=== PATIENT | male | born 1960 | race Caucasian/White ===

== ENCOUNTER 2016-08-09 18:26 | Emergency (ER) | payer OTHER ==
[~2016-08-09 18:26] MED LIST: ACETAMINOPHEN650 M3 PO; ALBUTEROL17 GM; ALBUTEROL17 GM INH; ALDACTONE; ALDACTONE100 MG PO; AMBIEN10 MG PO; BUMEX PO; BUMEX2 MG PO; CORGARD; CORGARD PO; GLUCAGON; GLUCAGON W/DILUE1 MG; IBUPROFEN400 MG PO; KEPPRA500 MG PO; LACTULOSE10 G/15 M1 PO; LASIX; LEXAPRO PO; LEXAPRO20 MG PO; LIDOCAINE; LIDOCREAM5 GM TOP; MAALOX MAXIMUM355 ML PO; MILK OF MAGNESIA PO; NADOLOL40 MG PO; NAPROSYN500 MG PO; NO MEDICATIONS; PRILOSEC; PRILOSEC20 MG PO; PROTONIX PO; ROXICODONE5 MG PO; SEROQUEL PO; SPIRONOLACTONE100 MG PO; TRAZODONE; TRENTAL400 MG PO; ZOLOFT100 MG PO
== END 2016-08-09 18:30 | disposition left against medical advice (07) ==
LOC: CED 18:26
DX: M79.89 Other specified soft tissue disorders (principal); F17.210 Nicotine dependence, cigarettes, uncomplicated; Z88.8 Allergy status to other drugs, medicaments and biological substances
CPT/HCPCS: 99282

== ENCOUNTER 2016-10-01 12:00 | Inpatient (IN) | payer OTHER ==
--- NOTE | ~2016-10-01 | CO ---
Unit #: [id number] #: [id number] Patient: STEPHANIE RIOS SR [id number] [place] [address] [id number] I MR#: [id number] NAME: STEPHANIE RIOS SR ROOM: [facility] Age: 56 Sex: M Admission Date: 10/01/2016 : 1960 Attending Physician: Zonia Franco M.D. Primary Care Physician: Barb Bernard M.D. Consultation Date: 10/03/2016 CONSULTATION REPORT ORDERING PROVIDER Dr. Franco. REASON FOR CONSULT Low platelets. SUBJECTIVE The patient has no complaints at this time. OBJECTIVE Platelets are noted to be in the 40s. He is hepatitis C positive with cirrhosis and alcoholism. ASSESSMENT Low platelets. PLAN Get a repeat CBC and see if his platelets recover now that he has done detoxing. He needs to see a stonework tracer outpatient, but it is likely that his low platelets are because of his nonfunctioning liver. Dictated by... Harley Zavala/cuca TD: 10/04/2016 01:51 JOB #: [id number] CONSULTATION REPORT Page 1 of 1 X NEELA ALEXANDER APRN CONSULTATION REPORT
--- NOTE | ~2016-10-01 | PN ---
Unit #: [id number] #: [id number] Patient: STEPHANIE RAMIREZ [id number] [facility] [address] [place] [address] [id number] MR#: [id number] NAME: STEPHANIE RAMIREZ SR ROOM: 63 Age: 56 Sex: M Admission Date: 10/01/2016 : 1960 Attending Physician: Zonia Franco M.D. Admitting Physician: Zonia Franco M.D. Primary Care Physician: Simin Hutson PROGRESS NOTES DATE October 07, 2016 DISCUSSION Mr. Ramirez is a 56-year-old white male, who was seen today and chart was reviewed and the case was discussed with the staff. He has been anxious, withdrawn, and rather seclusive to himself with persistent depressive symptoms and suicidal ideation. Meanwhile, he has been taking the medications and tolerating them fairly well with no reported side effects. MENTAL STATUS EXAMINATION Middle-aged white male, who was casually dressed with fair personal hygiene and appears to be in no acute distress or discomfort. He was awake and alert on interaction with intact orientation. His mood is anxious with a congruent affect. His speech is slow and goal-directed. He reports having suicidal ideation but denies any homicidal ideations, and also denies any auditory or visual hallucinations. His insight and judgment remain significantly impaired. TREATMENT PLAN 1. We will continue him on his current medications and treatment protocol, and will monitor his response to the medications, and make further adjustments as needed. 2. We will continue to followup. Dictated by... Simin Jhaveri/campbell TD: 10/08/2016 09:49 JOB #: [id number] Unit #: [id number] #: [id number] Patient: STEPHANIE RAMIREZ SR [facility] PROGRESS NOTES Page 1 of 1 X Zonia Franco MD PROGRESS NOTE
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
--- NOTE | ~2016-10-01 | PN ---
Unit #: [id number] #: [id number] Patient: STEPHANIE RAMIREZ SR [id number] [facility] [address] [place] [address] [id number] I MR#: [id number] NAME: STEPHANIE RAMIREZ SR ROOM: P263 Age: 56 Sex: M Admission Date: 10/01/2016 : 1960 Attending Physician: Zonia Franco M.D. Admitting Physician: Zonia Franco M.D. Primary Care Physician: Simin Hutson PROGRESS NOTES DATE OF SERVICE: 10/11/2016 SUBJECTIVE Mr. Ramirez is a 56-year-old white male, who was seen today and chart was reviewed, and case was discussed with the staff. He has been anxious, withdrawn, though has not shown any agitation and reports improvement in his depressive symptoms. However, he reports they would like to increase his Seroquel further. He has been taking medications and tolerating them fairly well with no reported side effects. MENTAL STATUS EXAMINATION Middle-aged white male who was casually dressed with fair personal hygiene, appears to be in no acute distress or discomfort. He was awake and alert on interaction with intact orientation. His mood was anxious with a congruent affect. His speech was slow and goal directed. He denies any suicidal or homicidal ideations and also denies any auditory or visual hallucinations. His insight and judgment remain slightly impaired. TREATMENT PLAN 1. We will continue on his current treatment protocol. We will monitor his response to medications and make further adjustments as needed. 2. We will continue to follow up. Dictated by... Simin Jhaveri/cuca TD: 10/12/2016 01:30 JOB #: [id number] [facility] PROGRESS NOTES Page 1 of 1 X Zonia Franco MD PROGRESS NOTE
--- NOTE | ~2016-10-01 | PN ---
Unit #: [id number] #: [id number] Patient: STEPHANIE RAMIREZ [id number] [facility] [address] [place] [address] [id number] I MR#: [id number] NAME: STEPHANIE RAMIREZ SR ROOM: 63 Age: 56 Sex: M Admission Date: 10/01/2016 : 1960 Attending Physician: Zonia Franco M.D. Admitting Physician: Zonia Franco M.D. Primary Care Physician: Simin Hutson PROGRESS NOTES DATE October 03, 2016 DISCUSSION Mr. Ramirez is a 56-year-old white male, who was seen today and chart was reviewed and the case was discussed with the staff. He has been anxious, withdrawn, and rather seclusive to himself. Meanwhile, he has been cooperative with the treatment recommendations and he has been taking the medications and tolerating them fairly well with no reported side effects. MENTAL STATUS EXAMINATION Middle-aged white male, who was casually dressed with fair personal hygiene and appears to be in no acute distress or discomfort. He was awake and alert on interaction with intact orientation. His mood is anxious with a congruent affect. He denies any suicidal or homicidal ideations. His insight and judgment remain slightly impaired. TREATMENT PLAN 1. We will continue him on his current treatment protocol, and will monitor his response to the medications, and make further adjustments as needed. 2. We will continue to followup. Dictated by... Simin Jhaveri/campbell TD: 10/04/2016 10:51 JOB #: [id number] Unit #: [id number] #: [id number] Patient: STEPHANIE RAMIREZ [facility] PROGRESS NOTES Page 1 of 1 X Zonia Franco MD X PROGRESS NOTE
--- NOTE | ~2016-10-01 | DS ---
Unit #: [id number] #: [id number] Patient: STEPHANIE RAMIREZ SR [id number] [facility] [address] [place] [address] [id number] I MR#: [id number] NAME: STEPHANIE RAMIREZ SR ROOM: P263 Age: 56 Sex: M Admission Date: 10/01/2016 : 1960 Discharge Date: 10/12/2016 Attending Physician: Zonia Franco M.D. Primary Care Physician: Barb Bernard M.D. DISCHARGE SUMMARY IDENTIFYING DATA Mr. Ramirez is a 56-year-old white male, who is a resident of [place], [place], and is known to us from previous encounter, and was self-referred to the hospital on a voluntary basis. DISCHARGE DIAGNOSES Psychiatric: Bipolar disorder, most recent episode depressed, recurrent, moderate, without psychotic features. Medical: Cirrhosis of the liver. Stressors: Moderate psychosocial stressors. HISTORY OF PRESENT ILLNESS Please see initial psychiatric evaluation for details. PAST PSYCHIATRIC HISTORY Please see initial psychiatric evaluation for details. PAST MEDICAL HISTORY Please see initial psychiatric evaluation for details. HOSPITAL COURSE The patient [facility] and was oriented to the hospital environment. Routine p.r.n. medications were initiated, and he was started back on his home medications and medications were adjusted and Zoloft was started and then gradually titrated up as the patient was constantly complaining of persistent depressive symptoms, though he was polite and pleasant and compliant with treatment recommendations and was taking the medications regularly and was tolerating them fairly well and was able to show a slow, but therapeutic response to the medications with improvement in depression and anxiety and was denying any suicidal ideations, intent, or plan and was not seen to be a danger to self or anyone else, and as such, it was decided that he will be discharged home and will continue treatment on an outpatient basis. DISCHARGE MEDICATIONS Zoloft 100 mg b.i.d. for depression, and Seroquel 200 mg at bedtime for depression. DISCHARGE CONDITION Stable. PROGNOSIS Fair. Unit #: [id number] #: [id number] Patient: STEPHANIE RAMIREZ SR Dictated by... Zonia Franco M.D. IAA/modl TD: 10/12/2016 22:02 JOB #: [id number] DISCHARGE SUMMARY Page 1 of 1 X Zonia Franco MD DISCHARGE SUMMARY
--- NOTE | ~2016-10-01 | PN ---
Unit #: [id number] #: [id number] Patient: STEPHANIE RAMIREZ [id number] [facility] [address] [place] [address] [id number] I MR#: [id number] NAME: STEPHANIE RAMIREZ SR ROOM: 63 Age: 56 Sex: M Admission Date: 10/01/2016 : 1960 Attending Physician: Zonia Franco M.D. Admitting Physician: Zonia Franco M.D. Primary Care Physician: Simin Hutson PROGRESS NOTES DATE 10/05/2016 DISCUSSION Mr. Ramirez is a 56-year-old, white male with mood disorder who was seen today and chart was reviewed and case was discussed with the staff. He has been anxious, withdrawn and rather seclusive to himself. Meanwhile, he has been cooperative with treatment recommendations. he has been taking the medication and tolerating them fairly well with no reported side effects. MENTAL STATUS EXAM Middle-aged white male who was casually dressed with fair personal hygiene, appears to be in no acute distress or discomfort. He was awake and alert on interaction with intact orientation. His mood was anxious with congruent affect. He denies any suicidal or homicidal ideation. His insight and judgement remains slightly impaired. TREATMENT PLAN 1. We will continue him on his current treatment protocol. We will monitor his response to the medication and make further adjustments as needed. 2. We will continue to follow up. Dictated by... Simin Jhaveri/tevin TD: 10/06/2016 00:33 JOB #: [id number] Unit #: [id number] #: [id number] Patient: STEPHANIE RAMIREZ [facility] PROGRESS NOTES Page 1 of 1 X Zonia Franco MD X PROGRESS NOTE
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
--- NOTE | ~2016-10-01 | PN ---
Unit #: [id number] #: [id number] Patient: STEPHANIE RAMIREZ [id number] [facility] [address] [place] [address] [id number] I MR#: [id number] NAME: STEPHANIE RAMIREZ SR ROOM: P263 Age: 56 Sex: M Admission Date: 10/01/2016 : 1960 Attending Physician: Zonia Franco M.D. Admitting Physician: Zonia Franco M.D. Primary Care Physician: Simin Hutson PROGRESS NOTES DATE 10/06/2016 DISCUSSION Mr. Ramirez is a 56-year-old white male who was seen today and chart was reviewed and case was discussed with the staff. He has been anxious, withdrawn and rather seclusive to himself. Meanwhile, he has been cooperative with treatment recommendations and has been reporting some persistent depressive symptoms with feelings of hopelessness. MENTAL STATUS EXAMINATION Middle-aged white male who was casually dressed with fair personal hygiene and appears to be in no acute distress or discomfort. He was awake and alert on interaction with intact orientation. His mood was anxious with congruent affect. He reports having suicidal ideation but denies any homicidal ideation. His insight and judgement remains slightly impaired. TREATMENT PLAN 1. Will continue on his current treatment protocol. Will monitor his response to the medications and make further adjustments as needed. 2. Will continue to follow up. Dictated by... Simin Jhaveri/fish TD: 10/07/2016 20:03 JOB #: [id number] Unit #: [id number] #: [id number] Patient: STEPHANIE RAMIREZ [facility] PROGRESS NOTES Page 1 of 1 X Zonia Franco MD X PROGRESS NOTE
--- NOTE | ~2016-10-01 | PN ---
Unit #: [id number] #: [id number] Patient: STEPHANIE RAMIREZ [id number] [facility] [address] [place] [address] [id number] MR#: [id number] NAME: STEPHANIE RAMIREZ SR ROOM: P263 Age: 56 Sex: M Admission Date: 10/01/2016 : 1960 Attending Physician: Zonia Franco M.D. Admitting Physician: Zonia Franco M.D. Primary Care Physician: Simin Hutson PROGRESS NOTES DATE October 09, 2016 DISCUSSION Mr. Ramirez is a 56-year-old white male, who was seen today and chart was reviewed and the case was discussed with the staff. He has been anxious, withdrawn, and reports persistent depressive symptoms. Meanwhile, he has been cooperative with the treatment recommendations and taking the medications and tolerating them without any side effects. MENTAL STATUS EXAMINATION Middle-aged white male, who was casually dressed with fair personal hygiene and appears to be in no acute distress or discomfort. He was awake and alert on interaction with intact orientation. His mood is anxious and depressed with a congruent affect. He denies any current suicidal or homicidal ideations. His insight and judgment remain slightly impaired. TREATMENT PLAN 1. We will continue him on his current medications and treatment protocol, and will monitor his response to the medications, and make further adjustments as needed. 2. We will continue to followup. Dictated by... Simin Jhaveri/campbell TD: 10/11/2016 09:38 JOB #: [id number] Unit #: [id number] #: [id number] Patient: STEPHANIE RAMIREZ [facility] PROGRESS NOTES Page 1 of 1 X Zonia Franco MD X PROGRESS NOTE
--- NOTE | ~2016-10-01 | PN ---
Unit #: [id number] #: [id number] Patient: STEPHANIE RAMIREZ [id number] [facility] [address] [place] [address] [id number] I MR#: [id number] NAME: STEPHANIE RAMIREZ SR ROOM: [facility] Age: 56 Sex: M Admission Date: 10/01/2016 : 1960 Attending Physician: Zonia Franco M.D. Admitting Physician: Zonia Franco M.D. Primary Care Physician: Simin Hutson PROGRESS NOTES DATE 10/10/2016 DISCUSSION Mr. Ramirez is a 56-year-old, white male who was seen today and chart was reviewed and case was discussed with the staff. He has been anxious, withdrawn and rather seclusive to himself. cooperative with the treatment recommendations. He has been taking the medication and tolerating them side effects. MENTAL STATUS EXAM Middle-aged white male who was casually dressed with fair personal hygiene, appears to be in no acute distress or discomfort. orientation. His mood was anxious and depressed with congruent affect. His speech was slow and goal directed. He denies any suicidal or homicidal ideation. His insight and judgement remains slightly impaired. TREATMENT PLAN 1. We will continue him on his current treatment protocol. We will monitor his response and make further adjustments as needed. 2. We will continue to follow up. Dictated by... Simin Jhaveri/tevin TD: 10/13/2016 01:29 JOB #: [id number] Unit #: [id number] #: [id number] Patient: STEPHANIE RAMIREZ SR PROGRESS NOTES Page 1 of 1 X Zonia Franco MD PROGRESS NOTE
--- NOTE | ~2016-10-01 | PN ---
Unit #: [id number] #: [id number] Patient: STEPHANIE RAMIREZ [id number] [facility] [address] [place] [address] [id number] MR#: [id number] NAME: STEPHANIE RAMIREZ SR ROOM: 63 Age: 56 Sex: M Admission Date: 10/01/2016 : 1960 Attending Physician: Zonia Franco M.D. Admitting Physician: Zonia Franco M.D. Primary Care Physician: Simin Hutson PROGRESS NOTES DATE 10/08/2016 DISCUSSION Mr. Ramirez is a 56-year-old, white male with mood disorder who was seen today and chart was reviewed and case was discussed with the staff. He has been anxious, withdrawn, depressed and rather seclusive to himself. Meanwhile, he has been cooperative with treatment recommendations and has been taking medications and tolerating them fairly well with no reported side effects. MENTAL STATUS EXAM Middle-aged white male who was casually dressed with fair personal hygiene, appears to be in no acute distress or discomfort. He was awake and alert on interaction with intact orientation. His mood was anxious with congruent affect. He reports having suicidal ideation but denies any homicidal ideation. His insight and judgement remains slightly impaired. TREATMENT PLAN 1. We will continue his current treatment protocol. We will increase his Zoloft to 100 mg twice a day. We will monitor his response and make further adjustments as needed. 2. We will continue to follow up. Dictated by... Simin Jhaveri/tevin TD: 10/11/2016 02:59 JOB #: [id number] Unit #: [id number] #: [id number] Patient: STEPHANIE RAMIREZ SR PROGRESS NOTES Page 1 of 1 X Zonia Franco MD PROGRESS NOTE
--- NOTE | ~2016-10-01 | PN ---
Unit #: [id number] #: [id number] Patient: STEPHANIE RAMIREZ SR [id number] [facility] [address] [place] [address] [id number] MR#: [id number] NAME: STEPHANIE RAMIREZ SR ROOM: 63 Age: 56 Sex: M Admission Date: 10/01/2016 : 1960 Attending Physician: Zonia Franco M.D. Admitting Physician: Zonia Franco M.D. Primary Care Physician: Simin Hutson PROGRESS NOTES SUBJECTIVE Mr. Ramirez is a 56-year-old MENTAL STATUS EXAMINATION Middle-age white male who is casually dressed with fair personal hygiene, and appears to be in no acute distress or discomfort. He was awake and alert on interaction with intact orientation. His mood was anxious with a congruent affect . Dictated by... Simin Jhaveri/cuca TD: 10/04/2016 10:01 JOB #: [id number] [facility] PROGRESS NOTES Page 1 of 1 X Zonia Franco MD PROGRESS NOTE
--- NOTE | ~2016-10-01 | PN ---
Unit #: [id number] #: [id number] Patient: STEPHANIE RAMIREZ [id number] [facility] [address] [place] [address] [id number] MR#: [id number] NAME: STEPHANIE RAMIREZ SR ROOM: [id number] Age: 56 Sex: M Admission Date: 10/01/2016 : 1960 Attending Physician: Zonia Franco M.D. Admitting Physician: Zonia Franco M.D. Primary Care Physician: Simin Hutson PROGRESS NOTES DATE OF SERVICE: 10/04/2016 SUBJECTIVE Mr. Ramirez is a 56-year-old white male with mood disorder, who was seen today and chart was reviewed and case was discussed with the staff. He has been anxious, withdrawn, and rather seclusive to himself. Meanwhile, he has been cooperative with treatment recommendations and has been taking the medications and tolerating them fairly well, but reports some persistent depressive symptoms around the staff . MENTAL STATUS EXAMINATION Middle-aged white male who was casually dressed with fair personal hygiene, appears to be in no acute distress or discomfort. He was awake and alert on interaction with intact orientation. His mood was anxious and depressed with a congruent affect. His speech was slow and goal directed. He reports having suicidal ideations, but denies any homicidal ideations. His insight and judgment remain slightly impaired. TREATMENT PLAN 1. We will continue him on his current medications and treatment protocol. We will monitor his response to the medications and make further adjustments as needed. 2. We will continue to follow up. Dictated by... Simin Jhaveri/cuca TD: 10/06/2016 00:33 JOB #: [id number] Unit #: [id number] #: [id number] Patient: STEPHANIE RAMIREZ SR [facility]ANYA PROGRESS NOTES Page 1 of 1 X Zonia Franco MD PROGRESS NOTE
[2016-10-02 12:26] LABS: BASOPHIL% 0.9 % (0-2.5); EOSINOPHIL# 0.1 X10e3 (0-0.7); EOSINOPHIL% 6.2 % (0.0-7.0); HEMATOCRIT 30.1 % (38.0-50.0); HEMOGLOBIN 9.8 gm/dL (13.0-16.0); LYMPHOCYTE# 0.5 X10e3 (1.0-3.5); LYMPHOCYTE% 29.4 % (17.0-45.0); MEAN CELL VOLUME 81.4 FL (83-96); MEAN CORPUSCULAR HEMOGLOBIN 26.5 PG (28-34); MEAN CORPUSCULAR HGB CONC 32.6 g/dL (30-36); MEAN PLATELET VOLUME 10.9 FL (6.5-11.5); MONOCYTE# 0.2 X10e3 (0-1.0); MONOCYTE% 10.8 % (3.0-12.0); NEUTROPHIL# 0.9 X10e3 (1.5-7.1); NEUTROPHIL% 52.7 % (40-75); RED CELL DISTRIBUTION WIDTH 19.1 % (11.0-15.5); WHITE BLOOD COUNT 1.7 X10e3 (4.0-10.5)
[2016-10-02 12:39] LABS: ALBUMIN SERUM 2.7 g/dL (3.5-5.0); BILIRUBIN,TOTAL 0.9 mg/dL (0.2-2.0); BUN/CREATININE RATIO 11.42; CALCIUM SERUM 8.4 mg/dL (8.4-10.2); CREATININE SERUM 0.7 mg/dL (0.6-1.4); GLOM FILT RATE Estimated 104.8 mL/min (>60); PROTEIN TOTAL SERUM 5.2 g/dL (6.0-8.3)
[2016-10-02 13:14] LABS: DIFF IND YES; PLATELET COUNT 42 X10e3 (140-420)
[2016-10-02 13:21] LABS: ANISOCYTOSIS MOD; HYPOCHROMIA SL; PLATELET ESTIMATE DECREASED (NORMAL)
[2016-10-03 11:42] LABS: URINE APPEARANCE CLEAR; URINE BILIRUBIN NEG (NEG); URINE BLOOD NEG (NEG); URINE COLOR YELLOW; URINE GLUCOSE NEG (NEG); URINE KETONE NEG (NEG); URINE LEUKOCYTE ESTERASE NEG (NEG); URINE NITRATE NEG (NEG); URINE PROTEIN NEG (NEG); URINE SPECIFIC GRAVITY 1.008 (1.003-1.035)
[2016-10-03 12:04] LABS: AMPHETAMINE NEG (NEG); BARBITURATES NEG (NEG); BENZODIAZEPINES NEG (NEG); COCAINE NEG (NEG); MARIJUANA NEG (NEG); OPIATES NEG (NEG); TRICYCLIC ANTIDEPRESSANTS NEG (NEG); U METHADONE NEG (NEG)
[2016-10-04 09:51] LABS: BASOPHIL% 0.5 % (0-2.5); EOSINOPHIL% 5.3 % (0.0-7.0); HEMATOCRIT 24.3 % (38.0-50.0); HEMOGLOBIN 7.9 gm/dL (13.0-16.0); LYMPHOCYTE# 0.3 X10e3 (1.0-3.5); LYMPHOCYTE% 34.3 % (17.0-45.0); MEAN CELL VOLUME 81.3 FL (83-96); MEAN CORPUSCULAR HEMOGLOBIN 26.5 PG (28-34); MEAN CORPUSCULAR HGB CONC 32.6 g/dL (30-36); MEAN PLATELET VOLUME 10.8 FL (6.5-11.5); MONOCYTE# 0.1 X10e3 (0-1.0); MONOCYTE% 13.5 % (3.0-12.0); NEUTROPHIL# 0.4 X10e3 (1.5-7.1); NEUTROPHIL% 46.4 % (40-75); RED BLOOD COUNT 2.98 X10e (3.90-5.60)
[2016-10-04 10:56] LABS: PLATELET COUNT 27 X10e3 (140-420); WHITE BLOOD COUNT 0.8 X10e3 (4.0-10.5)
[2016-10-04 10:57] LABS: DIFF IND YES
[2016-10-04 11:34] LABS: ANISOCYTOSIS MOD; ELLIPTOCYTES PRESENT; NUCLEATED RED BLOOD CELL 2 /100 (0); PLATELET ESTIMATE DECREASED (NORMAL)
[2016-10-04 11:35] LABS: ACANTHOCYTES PRESENT; HYPOCHROMIA SL; OVALOCYTES PRESENT; POIKILOCYTOSIS SL; ROULEAUX SLIGHT; TEAR DROP CELLS PRESENT; TOXIC GRANULATION SL
[2016-10-04 11:36] LABS: REACTIVE LYMPHS PRESENT
== END 2016-10-12 13:15 | disposition home or self-care (01) | DRG 885 ==
LOC: P2L 14:23
PROVIDERS: Psychiatry & Neurology Psychiatry
DX: F31.32 Bipolar disorder, current episode depressed, moderate (principal); K74.60 Unspecified cirrhosis of liver; G40.909 Epilepsy, unspecified, not intractable, without status epilepticus; K44.9 Diaphragmatic hernia without obstruction or gangrene; Z90.49 Acquired absence of other specified parts of digestive tract; B19.20 Unspecified viral hepatitis C without hepatic coma; G43.909 Migraine, unspecified, not intractable, without status migrainosus; K22.70 Barrett's esophagus without dysplasia
CPT/HCPCS: 80053; 80307; 81003; 85025